=== PATIENT | male | born 1990 | race Caucasian/White ===

== ENCOUNTER 2020-02-01 14:30 | Outpatient (RCR) | payer OTHER, MEDICARE, MEDICAID, SELFPAY ==
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
== END 2020-05-02 08:54 ==
LOC: SP 14:30
PROVIDERS: Visit Provider Psychiatry & Neurology Psychiatry
DX: R47.01 Aphasia (principal); R41.89 Other symptoms and signs involving cognitive functions and awareness; S06.9X9A Unspecified intracranial injury with loss of consciousness of unspecified duration, initial encounter; R48.2 Apraxia
CPT/HCPCS: 92507; 96105